=== PATIENT | female | born 1985 | race Caucasian/White ===

== ENCOUNTER 2018-10-09 05:30 | Day surgery (SDC) | payer BC, OTHER ==
[~2018-10-09] VITALS: Ht 160 cm; Wt 56.7 kg
[~2018-10-09 05:30] MED LIST: TRI-LO-MARZIA1 EACH PO
[2018-10-09 07:04] LABS: HEMATOCRIT 41.2 % (37.0-47.0); HEMOGLOBIN 14.5 gm/dL (12.0-15.0)
[2018-10-09 08:00] VITALS: BP 107/64
[2018-10-09] MEDS ORDERED: PERCOCET PO (10:26)
[2018-10-09] MEDS ORDERED: SENOKOT-S1 TA2 PO (10:26)
[2018-10-09] MEDS ORDERED: NEURONTIN 300300 M1 PO (10:26)
[2018-10-09 10:59] VITALS: BP 107/64
--- NOTE | 2018-10-13 11:08 | PATH ---
[facility] [address] [place] [address] PATHOLOGY RPT PROCEDURE Name: SOFI HUSTON Room #: [facility] [facility] [place]#: [id number] Admission: 10/09/18 Date of : 87 Discharge: 10/09/18 Report #: [id number] Path Case #: [id number] [facility] Accession Number: [id number] . 01 Material submitted: . INCARCERATED HERNIA CONTENTS . 01 Clinical history: . Incisional hernia . 02 Diagnosis: Incarcerated hernia contents, repair: - Congested fibrovascular and fibroadipose tissue with reactive changes, compatible with hernia contents. (IUV:pit 10/12/2018) QTP/10/12/2018 . 02 Electronically signed: . Allyn Pineda MD, Pathologist NPI- [id number] . 01 Gross description: . The specimen is received in formalin, labeled "Sofi Huston, incarcerated hernia contents" and consists of a segment of castillo-larsen membranous tissue with attached yellow adipose tissue measuring 8.8 x 6.0 x 2.0 cm. Sectioning reveals no nodules or mass lesions and corporate representative sections are submitted in A1. (SDY; 10/09/2018) SYU/SYU . 02 Pathologist provided ICD-10: K43.2 . 02 CPT . 875368 Specimen Comment: A courtesy copy of this report has been sent to Specimen Comment: [phone], . Specimen Comment: Report sent to / DR CLEMENTS Specimen Comment: A duplicate report has been generated due to demographic updates. Performed at: 01 [place] [id number] [id number] MD Walter Lara MD Phone: [phone] Performed at: [address] [id number] [address] [id number] PATHOLOGY RPT PROCEDURE Name: SOFI HUSTON Room #: [facility] [place].#: [id number] Admission: 10/09/18 Date of : 87 Discharge: 10/09/18 Report #: [id number] Path Case #: [id number] MD Allyn Pineda MD Phone: [phone]
== END 2018-10-09 12:15 | disposition home or self-care (01) ==
LOC: OR 05:30 → TBA 05:31 → OR 12:15
PROVIDERS: Surgery
DX: K43.0 Incisional hernia with obstruction, without gangrene (principal); F17.210 Nicotine dependence, cigarettes, uncomplicated; Z98.890 Other specified postprocedural states; Z88.8 Allergy status to other drugs, medicaments and biological substances; Z79.899 Other long term (current) drug therapy
CPT/HCPCS: 50010; 50101; 50249; 50386; 50555; 50558; 50962; 50978; 50984; 52265; 53307; 54022; 54118; 56462; 56525; 56526; 57092; 62110; 62900; 70005

== ENCOUNTER → 2020-03-03 | Outpatient (CLI) | payer BC, OTHER ==
[~2020-03-03] MED LIST changes: +NEURONTIN 300300 M1 PO; +PERCOCET PO; +SENOKOT-S1 TA2 PO
== END ==
LOC: LAB 02-29 14:56
PROVIDERS: ATTEND Anesthesiology
DX: Z01.818 Encounter for other preprocedural examination (principal); Z11.59 Encounter for screening for other viral diseases

== ENCOUNTER → 2020-05-05 | Outpatient (CLI) | payer BC, OTHER | LOC: LAB 11:36 | PROVIDERS: ATTEND Anesthesiology | DX: Z01.812 Encounter for preprocedural laboratory examination (principal); Z11.59 Encounter for screening for other viral diseases ==